=== PATIENT | female | born 1965 | race Caucasian/White ===

== ENCOUNTER 2020-10-23 14:56 | Emergency (ER) | payer MEDICAID, OTHER ==
[~2020-10-23] VITALS: Ht 149.9 cm; Wt 90.7 kg
[2020-10-23 15:32] VITALS: BP 154/98
[2020-10-23] MEDS ORDERED: IBUP-1957 PO (16:27)
[2020-10-23] MEDS ORDERED: AMOX-430 PO (16:27)
[2020-10-23] MEDS ORDERED: LORA-676 PO (16:27)
[2020-10-23] MEDS ORDERED: SODI1KIT NS (16:27)
--- NOTE | 2020-10-23 16:38 | NUR ---
COVID SWAB DONE AND SENT TO LAB
--- NOTE | 2020-10-23 16:40 | NUR ---
Patient discharged to home in stable condition. Written and verbal after care instructions given. Patient verbalizes understanding of instruction. Pt ambulatory with a steady gait
== END 2020-10-23 16:42 | disposition home or self-care (01) ==
LOC: ER 15:11
DX: J32.9 Chronic sinusitis, unspecified (principal); Z20.822 Contact with and (suspected) exposure to COVID-19; I10 Essential (primary) hypertension; J45.909 Unspecified asthma, uncomplicated; F41.9 Anxiety disorder, unspecified
CPT/HCPCS: 99283; C9803; U0003